=== PATIENT | male | born 1980 | race African-American/Black ===

== ENCOUNTER 2024-12-08 15:25 | Emergency (ER) | payer SELFPAY ==
--- NOTE | 2024-12-08 16:23 | RAD REPORT ---
Procedure: Chest Pa And Lat (2 Views) HISTORY: Chest pain COMPARISON: none FINDINGS: The lungs appear clear of acute infiltrate. No significant pleural effusion noted. The heart is normal size. IMPRESSION: No acute abnormality is displayed.
[2024-12-08] MEDS ORDERED: MORPHINE 4 MG/ML SYR ONE (17:40)
[2024-12-08] MEDS ORDERED: ONDANSETRON 4 MG/2 ML VIAL ONE (17:40)
[2024-12-08] MEDS ORDERED: NA CHLORIDE 0.9% 1,000 ML ONE (17:55)
[2024-12-08 18:12] LABS: Absolute Basophils 0.1 K/uL (0-0.5); Absolute Eosinophils 0.5 K/uL (0-0.5); Absolute Lymphocytes (CBC) 1.9 K/uL (0.7-4.9); Absolute Monocytes 0.8 K/uL (0.1-1.3); Absolute Neutrophil 4.6 K/uL (1.8-8.0); Basophils % 1.2 % (0-1.3); Eosinophils % 5.9 % (0-4.4); Hematocrit 43.2 % (39.6-49.0); Hemoglobin 15.4 g/dL (13.6-17.9); Lymphocytes % 23.7 % (15.3-44.8); MCH 32.4 pg (27.0-35.0); MCHC 35.7 g/dL (32.0-36.0); MCV 90.8 fL (80-100); MPV 9.4 fL (7.6-11.3); Monocytes % 10.6 % (3.3-12.3); Neutrophils % 58.6 % (41.7-73.7); Nucleated Red Blood Cells % 0.1 % (0-0); Platelets 239 thou/uL (152-406); RBC Red Blood Cell Count 4.76 M/uL (4.33-5.43)
[2024-12-08 18:20] LABS: Specific Gravity 1.027 (1.005-1.030); Urine Bilirubin NEGATIVE (Negative); Urine Blood Negative (Negative); Urine Clarity Clear (Clear); Urine Color Yellow (Yellow); Urine Glucose NEGATIVE (Negative); Urine Ketones NEGATIVE (Negative); Urine Microscopic Reflex YN NO UMIC; Urine Nitrite NEGATIVE (Negative); Urine Protein NEGATIVE (Negative); Urine Urobilinogen Normal (Normal)
[2024-12-08 19:06] LABS: Anion Gap 10.4 mEq/L (5.0-15.0)
[2024-12-08 19:07] LABS: Potassium 4.4 mEq/L (3.5-5.1)
[2024-12-08 19:09] LABS: Troponin High Sensitivity 14.4 pg/mL (<58.9)
--- NOTE | 2024-12-08 19:18 | EDPHYS ---
Physician Documentation [facility] Sergei Name: Clif Abrams Age: 44 yrs Sex: Male : 1980 Arrival Date: 12/08/2024 Time: 15:25 Bed 6 Private MD: ED Physician Stephanie Clif HPI: 12/08 18:43 This 44 yrs old Black Male presents to ER via Ambulatory with complaints of Chest Pain. dr5 18:43 Onset: The symptoms/episode began/occurred this morning. 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 Patient reports that it comes and goes. Patient states he has been outside working in the heat for the past couple days and concerned about rhabdomyolysis.. Historical: - Allergies: 15:49 Levaquin; hb 15:49 Coconut; hb - Home Meds: 15:49 None [Active]; hb - PMHx: 15:49 None; hb - PSHx: 15:49 None; hb - Immunization history:: Adult Immunizations up to date. - Infectious Disease History:: Denies. - Social history:: Smoking status: Patient denies any tobacco usage or history of. ROS: 18:43 Constitutional: as per hpi dr5 Exam: 18:43 Constitutional: This is a well developed, well nourished patient who is awake, alert, dr5 and in no acute distress. Head/Face: Normocephalic, atraumatic. Eyes: Pupils equal round and reactive to light, extra-ocular motions intact. Lids and lashes normal. Conjunctiva and sclera are non-icteric and not injected. Cornea within normal limits. Periorbital areas with no swelling, redness, or edema. Neck: Trachea midline, no thyromegaly or masses palpated, and no cervical lymphadenopathy. Supple, full range of motion without nuchal rigidity, or vertebral point tenderness. No Meningismus. Chest/axilla: Normal chest wall appearance and motion. Nontender with no deformity. No lesions are appreciated. Cardiovascular: Regular rate and rhythm with a normal S1 and S2. Normal PMI, no JVD. No pulse deficits. Respiratory: Lungs have equal breath sounds bilaterally, clear to auscultation. No rales, rhonchi or wheezes noted. No increased work of breathing, no retractions or nasal flaring. Back: No spinal tenderness. No costovertebral tenderness. Full range of motion. Skin: Warm, dry with normal turgor. Normal color with no rashes, no lesions, and no evidence of cellulitis. Neuro: Awake and alert, GCS 15, oriented to person, place, time, and situation. Cranial nerves II-XII grossly intact. Motor strength 5/5 in all extremities. Sensory grossly intact. Cerebellar exam normal. Normal gait. Vital Signs: 15:32 BP 147 / 95; Pulse 66; Resp 16; Temp 97.3(TE); Pulse Ox 100% on R/A; Pain 7/10; hb 17:46 BP 150 / 93; Pulse 63; Resp 14; Pulse Ox 100% on R/A; Pain 9/10; ld1 18:04 BP 129 / 89; Pulse 63; Resp 18; Pulse Ox 97% on R/A; ld1 19:06 BP 124 / 84; Pulse 58; Resp 18; Pulse Ox 97% on R/A; kd3 15:32 Pain Scale: Adult hb 17:46 Pain Scale: Adult ld1 MDM: 15:38 Medical Screening Exam initiated dr5 19:29 Differential diagnosis: viral Infection, bacterial infection, NSTEMI, pneumonia, GERD, dr5 rhabdomyolysis. Data reviewed: vital signs, nurses notes, lab test result(s), radiologic studies. I considered the following discharge prescriptions or medication management in the emergency department Medications were administered in the Emergency Department. See MAR. Care significantly affected by the following Social Determinants of Health: Poor access to healthcare and/or lack of insurance, Poor access to transportation, Problems related to employment. Counseling: I had a detailed discussion with the patient and/or guardian regarding the historical points, exam findings, and any diagnostic results supporting the discharge/admit diagnosis, the presence of at least one elevated blood pressure reading (>120/80) during this emergency department visit, lab results, radiology results, the need for outpatient follow up, for definitive care, a family practitioner, to return to the emergency department if symptoms worsen or persist or if there are any questions or concerns that arise at home. Medication response: morphine relieved the patient's pain. Symptoms have resolved, Zofran relieved the patient's nausea. ED course: Upon reevaluation, patient feels much better and no other symptoms. All labs and x-ray results printed and given to patient as well as discussed. All questions answered. Work note given.. 12/08 15:47 Order name: Basic Metabolic Panel; Complete Time: 19:15 hb 12/08 15:47 Order name: CBC with Diff; Complete Time: 18:28 hb 12/08 15:47 Order name: NT PRO-BNP; Complete Time: 19:15 hb 12/08 15:47 Order name: Troponin HS; Complete Time: 19:15 hb 12/08 15:47 Order name: CK; Complete Time: 19:15 hb 12/08 15:47 Order name: UA Rfx [place] Cult if indicated; Complete Time: 18:28 hb 12/08 15:47 Order name: Chest Pa And Lat (2 Views) XRAY; Complete Time: 16:50 hb 12/08 15:47 Order name: Cardiac monitoring; Complete Time: 17:38 hb 12/08 15:47 Order name: EKG - Nurse/Tech; Complete Time: 17:38 hb 12/08 15:47 Order name: IV Saline Lock; Complete Time: 18:03 hb 12/08 15:47 Order name: Labs collected and sent; Complete Time: 18:03 hb 12/08 15:47 Order name: O2 Per Protocol; Complete Time: 17:38 hb 12/08 15:47 Order name: O2 Sat Monitoring; Complete Time: 17:38 hb EC:46 Rate is 67 beats/min. Rhythm is regular. QRS [place] is Normal. [place] interval is normal at dr5 164 msec. QRS interval is normal at 92 msec. QT interval is normal at 368 msec. Administered Medications: 18:03 Drug: morphine IVP or IV 4 mg IVP once over 4 mins Route: IVP; Infused Over: 4 mins; ld1 Site: left antecubital; 18:04 Follow up: Response: No adverse reaction ld1 18:03 Drug: Ondansetron IVP 4 mg IVP once; over 2 minutes Route: IVP; Site: left antecubital; ld1 18:04 Follow up: Response: No adverse reaction ld1 18:04 Drug: NS 0.9% IV 1000 ml IV at 1000 ml once; to be given as a bolus over 60 minutes ld1 Route: IV; Rate: 1000 ml; Site: left antecubital; Disposition: 12/09 11:10 I was immediately available on-site in the Emergency Department for consultation in the ms3 care of the patient. Disposition Summary: 12/08/24 19:18 Discharge Ordered Notes: Location: Home dr5 Condition: Stable dr5 Diagnosis - Chest pain, unspecified dr5 Followup: dr5 - With: Emergency Department - When: As needed - Reason: Worsening of condition Followup: dr5 - With: Private Physician - When: 1 - 2 days - Reason: Recheck today's complaints, Continuance of care, Re-evaluation by your physician Discharge Instructions: - Discharge Summary Sheet dr5 - Chest Wall Pain dr5 Forms: - Work release form dr5 - Medication Reconciliation Form dr5 - Patient Portal Instructions dr5 - Leadership Thank You Letter dr5 Signatures: Dispatcher [employer] EDMS Aundrea Hua RN RN Clif Brown, DO ms3 Edwina Brown RN RN ld1 Armando Reid, SHRIMPER-C SHRIMPER-Cdr5 Corrections: (The following items were deleted from the chart) 12/08 15:47 15:47 BASIC METABOLIC PANEL+C.LAB.BRZ ordered. EDMS EDMS 15:47 15:47 CBC+H.LAB.BRZ ordered. EDMS EDMS 15:47 15:47 PROBNP+C.LAB.BRZ ordered. EDMS EDMS 15:47 15:47 Troponin High Sensitivity+C.LAB.BRZ ordered. EDMS EDMS 15:47 15:47 CREATINE PHOSPHOKINASE+C.LAB.BRZ ordered. EDMS EDMS 15:47 15:47 UA Rfx [place] Cult if indicated+U.LAB.BRZ ordered. EDMS EDMS 15:48 15:47 Chest Pa And Lat (2 Views)+RAD.RAD.BRZ ordered. EDMS EDMS
--- NOTE | 2024-12-08 19:18 | ER ---
Nurse's Notes [facility] Sergei Name: Clif Abrams Age: 44 yrs Sex: Male : 1980 Arrival Date: 12/08/2024 Time: 15:25 Bed 6 Private MD: Diagnosis: Chest pain, unspecified Presentation: 12/08 15:32 Chief complaint: Sharp left sided chest pain that started this morning. Coronavirus hb screen: At this time, the client does not indicate any symptoms associated with coronavirus-19. Ebola Screen: No symptoms or risks identified at this time. Initial Sepsis Screen: Does the patient meet any 2 criteria? No. Patient's initial sepsis screen is negative. Does the patient have a suspected source of infection? No. Patient's initial sepsis screen is negative. Risk Assessment: Do you want to hurt yourself or someone else? Patient reports no desire to harm self or others. Onset of symptoms was December 08, 2024. 15:32 Method Of Arrival: Ambulatory hb 15:32 Acuity: MIRNA 3 hb Historical: - Allergies: 15:49 Levaquin; hb 15:49 Coconut; hb - Home Meds: 15:49 None [Active]; hb - PMHx: 15:49 None; hb - PSHx: 15:49 None; hb - Immunization history:: Adult Immunizations up to date. - Infectious Disease History:: Denies. - Social history:: Smoking status: Patient denies any tobacco usage or history of. Screenin:46 [facility] ED Fall Risk Assessment (Adult) History of falling in the last 3 months, ld1 including since admission No falls in past 3 months (0 pts) Confusion or Disorientation No (0 pts) Intoxicated or Sedated No (0 pts) Impaired Gait No (0 pts) Mobility Assist Device Used No (0 pt) Altered Elimination No (0 pt) Score/Fall Risk Level 0 - 2 = Low Risk Oriented to surroundings, Hourly rounding (assess needs \T\ fall precautionary measures) done. Abuse screen: Denies threats or abuse. Denies injuries from another. Nutritional screening: No deficits noted. Tuberculosis screening: No symptoms or risk factors identified. Assessment: 17:46 General: Appears in no apparent distress. uncomfortable, Behavior is calm, cooperative, ld1 appropriate for age. Pain: Complains of pain in chest Pain does not radiate. Pain currently is 8 out of 10 on a pain scale. Quality of pain is described as heavy, throbbing, Pain began 2-3 days ago. Is intermittent. Neuro: Level of Consciousness is awake, alert, obeys commands, Oriented to person, place, time, situation. Cardiovascular: Capillary refill is > 3 seconds Patient's skin is warm and dry. Rhythm is sinus rhythm. Respiratory: Airway is patent Respiratory effort is even, unlabored. GI: Abdomen is round non-distended. : No signs and/or symptoms were reported regarding the genitourinary system. EENT: No signs and/or symptoms were reported regarding the EENT system. Derm: No signs and/or symptoms reported regarding the dermatologic system. Musculoskeletal: No signs and/or symptoms reported regarding the musculoskeletal system. 19:18 General: Appears in no apparent distress. Behavior is calm, cooperative. Neuro: Level kd3 of Consciousness is awake, alert, obeys commands, Oriented to person, place, time, situation. Cardiovascular: Patient's skin is warm and dry. Respiratory: Airway is patent Respiratory effort is even, unlabored. Vital Signs: 15:32 BP 147 / 95; Pulse 66; Resp 16; Temp 97.3(TE); Pulse Ox 100% on R/A; Pain 7/10; hb 17:46 BP 150 / 93; Pulse 63; Resp 14; Pulse Ox 100% on R/A; Pain 9/10; ld1 18:04 BP 129 / 89; Pulse 63; Resp 18; Pulse Ox 97% on R/A; ld1 19:06 BP 124 / 84; Pulse 58; Resp 18; Pulse Ox 97% on R/A; kd3 15:32 Pain Scale: Adult hb 17:46 Pain Scale: Adult ld1 ED Course: 15:28 Patient arrived in ED. al6 15:33 [facility]ando Reid [facility]C [facility] hb 15:33 Clif Brown DO is Attending Physician. hb 15:46 EKG done, by ED staff, reviewed by Armando HEIN. hb 15:49 Triage completed. hb 15:49 Arm band placed on. hb 16:15 Chest Pa And Lat (2 Views) XRAY In Process Unspecified. EDMS 17:40 Bernard Blackburn, RN is Primary Nurse. bp 17:46 No provider procedures requiring assistance completed. Patient maintains SpO2 ld1 saturation greater than 95% on room air. 17:46 Patient has correct armband on for positive identification. Placed in gown. Bed in low ld1 position. Call light in reach. Side rails up X2. aegis console operator track on. Pulse ox on. NIBP on. Door closed. Noise minimized. Warm blanket given. 18:03 Basic Metabolic Panel Sent. bp 18:03 CBC with Diff Sent. bp 18:03 NT PRO-BNP Sent. bp 18:03 Troponin HS Sent. bp 18:03 Inserted saline lock: 22 gauge in left antecubital area, using aseptic technique. Blood bp collected. Flushed with 10 mL NS. 19:06 Primary Nurse role handed off by Bernard Blackburn RN kd3 19:06 Zeinab Becker, RN is Primary Nurse. kd3 19:32 IV discontinued, intact, bleeding controlled, No redness/swelling at site. Pressure kd3 dressing applied. 19:32 Provided Education on: fluid intake . kd3 Administered Medications: 18:03 Drug: morphine IVP or IV 4 mg IVP once over 4 mins Route: IVP; Infused Over: 4 mins; ld1 Site: left antecubital; 18:04 Follow up: Response: No adverse reaction ld1 18:03 Drug: Ondansetron IVP 4 mg IVP once; over 2 minutes Route: IVP; Site: left antecubital; ld1 18:04 Follow up: Response: No adverse reaction ld1 18:04 Drug: NS 0.9% IV 1000 ml IV at 1000 ml once; to be given as a bolus over 60 minutes ld1 Route: IV; Rate: 1000 ml; Site: left antecubital; Medication: 17:46 VIS not applicable for this client. ld1 Outcome: 19:18 Discharge ordered by . dr5 19:31 Discharged to home ambulatory, with family, kd3 19:31 Condition: stable 19:31 Discharge instructions given to patient, family, Instructed on discharge instructions, follow up and referral plans. Demonstrated understanding of instructions, 19:32 Patient left the ED. kd3 Signatures: Dispatcher [employer] EDNV Aundrea Hua RN RN Bernard Blackburn RN RN bp Edwina Brown RN RN ld1 Zeinab Becker RN RN kd3 Jeanette, Armando, NEON INSTALLER-C NEON INSTALLER-Cdr5 Alesha Restrepo6
[2024-12-08 19:45] VITALS: TEMP 97.3
[2024-12-08 19:48] VITALS: O2SAT 97
[2024-12-08 19:49] VITALS: BP 124/84
--- NOTE | 2024-12-09 12:18 | EKG ---
Test Date: 2024-12-08 Test Time: 15:46:55 Communications Director: HB MEASUREMENT RESULTS: Intervals: Rate: 67 SC: 164 QRSD: 92 QT: 368 QTc: 388 Morrill: P: 28 SC: 164 QRS: 13 T: -8 INTERPRETIVE STATEMENTS: Normal sinus rhythm Voltage criteria for left ventricular hypertrophy ST elevation, consider early repolarization, pericarditis, or injury T wave abnormality, consider inferior ischemia Abnormal ECG No previous ECG available for comparison Electronically Signed On 12-09-24 12:17:12 CDT by Maykel Costa
== END 2024-12-08 19:32 | disposition home or self-care (01) ==
LOC: ER 15:25
DX: R07.9 Chest pain, unspecified (principal)
CPT/HCPCS: 36415; 71046; 80048; 81003; 82550; 83880; 84484; 85025; 93005; 96374; 96375; 99285; J2405; J7030